=== PATIENT | female | born 1995 | race Caucasian/White ===

== ENCOUNTER 2020-09-04 17:26 | Emergency (ER) | payer OTHER ==
[2020-09-04 17:37] VITALS: TEMP 98.1
[2020-09-04] MEDS ORDERED: SODIUM CHLORIDE 0.9% 500 ML 500 ML IV ONE (18:17)
--- NOTE | 2020-09-04 18:38 | ED ---
General Adult HPI - General Chief complaint: Chest Pain Stated complaint: Chest discomfort,nausea Time Seen by Provider: 09/04/20 17:54 Source: patient, RN notes reviewed, old records reviewed Mode of arrival: ambulatory Limitations: no limitations - History of Present Illness Initial comments: 25-year-old female presenting for evaluation of lightheadedness, chest pain. 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 She has no known aneurysm or dissection. She follows at [facility]. She developed some dizziness, lightheadedness, chest pain. Today. This was a dull chest pain, no sharp pain or radiating chest pain. She denies associated diaphoresis or nausea. Symptoms have resolved currently. - Related Data Home Medications Medication Instructions Recorded Confirmed Dextroamphetamine/Amphetamine 30 mg PO BID 09/04/20 09/04/20 [Adderall] Allergies Allergy/AdvReac Type Severity Reaction Status Date / Time peanut Allergy Anaphylaxis Verified 09/04/20 20:01 Review of Systems ROS Statement: Those systems with pertinent positive or pertinent negative responses have been documented in the HPI. ROS Other: All systems not noted in ROS Statement are negative. 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 migraines History of Any Multi-Drug Resistant Organisms: None Reported Past Surgical History: No Surgical Hx Reported Past Psychological History: Anxiety Smoking Status: Never smoker Past Alcohol Use History: Occasional Past Drug Use History: None Reported General Exam Limitations: no limitations General appearance: alert, in no apparent distress Head exam: Present: atraumatic, normocephalic Eye exam: Present: normal appearance, PERRL ENT exam: Present: normal exam Neck exam: Present: normal inspection. Absent: tenderness, meningismus Respiratory exam: Present: normal lung sounds bilaterally. Absent: respiratory distress, wheezes Cardiovascular Exam: Present: regular rate, normal rhythm, normal heart sounds GI/Abdominal exam: Present: soft. Absent: distended, tenderness, guarding Extremities exam: Present: normal inspection, normal capillary refill. Absent: pedal edema Neurological exam: Present: alert, oriented X3, CN II-XII intact Psychiatric exam: Present: normal affect, normal mood Skin exam: Present: warm, dry, intact. Absent: cyanosis, diaphoretic Course Vital Signs 09/04/20 09/04/20 17:32 18:37 Temperature 98.1 F Pulse Rate 86 77 Respiratory 20 18 Rate Blood Pressure 120/77 136/87 O2 Sat by Pulse 99 96 Oximetry EKG Findings - EKG Comments: EKG Findings:: EKG: Normal sinus rhythm, rate of 90, IL interval 146, QRS duration 92, QTC 464, no ST segment elevation. Medical Decision Making - Medical Decision Making 25 yo presenting with an episode of lightheadedness, and some chest discomfort. Workup is initiated in the emergency department, she's seize EKG which shows sinus rhythm, no definitive ischemic changes, no ST segment elevation. She has chest x-ray which is negative for acute cardio pulmonary disease. CT angiography performed which is negative for coronary embolism, no dissection, normal aorta, does show cardiomegaly and fatty infiltrate of the liver. She has elevated liver enzymes as well. She does admit to daily consumption of beverages containing her fructose corn syrup. She will follow-up with her primary care physician regarding these symptoms. She is well-appearing with stable vitals. She will follow with her private care physician as well as her team at [facility]. - Lab Data Result diagrams: 09/04/20 18:37 09/04/20 18:37 Lab Results 09/04/20 09/04/20 09/04/20 Range/Units 18:37 18:37 18:37 WBC 9.5 (3.8-10.6) k/uL RBC 4.48 (3.80-5.40) m/uL Hgb 14.0 (11.4-16.0) gm/dL Hct 42.7 (34.0-46.0) % MCV 95.3 (80.0-100.0) fL MCH 31.4 (25.0-35.0) pg MCHC 32.9 (31.0-37.0) g/dL RDW 13.7 (11.5-15.5) % Plt Count 352 (150-450) k/uL Neutrophils % 58 % Lymphocytes % 34 % Monocytes % 5 % Eosinophils % 2 % Basophils % 0 % Neutrophils # 5.5 (1.3-7.7) k/uL Lymphocytes # 3.2 (1.0-4.8) k/uL Monocytes # 0.4 (0-1.0) k/uL Eosinophils # 0.2 (0-0.7) k/uL Basophils # 0.0 (0-0.2) k/uL PT 10.1 (9.0-12.0) sec INR 1.0 (<1.2) APTT 28.1 (22.0-30.0) sec Sodium 140 (137-145) mmol/L Potassium 4.5 (3.5-5.1) mmol/L Chloride 107 (98-107) mmol/L Carbon Dioxide 24 (22-30) mmol/L Anion Gap 9 mmol/L BUN 14 (7-17) mg/dL Creatinine 0.66 (0.52-1.04) mg/dL Est GFR (CKD-EPI)AfAm >90 (>60 ml/min/1.73 sqM) Est GFR (CKD-EPI)NonAf >90 (>60 ml/min/1.73 sqM) Glucose 91 (74-99) mg/dL Calcium 9.8 (8.4-10.2) mg/dL Magnesium 1.9 (1.6-2.3) mg/dL Total Bilirubin 1.6 H (0.2-1.3) mg/dL AST 106 H (14-36) U/L ALT 124 H (4-34) U/L Alkaline Phosphatase 64 (38-126) U/L Troponin I (0.000-0.034) ng/mL Total Protein 8.1 (6.3-8.2) g/dL Albumin 4.7 (3.5-5.0) g/dL Urine HCG, Qual (Not Detectd) 09/04/20 09/04/20 Range/Units 18:37 18:37 WBC (3.8-10.6) k/uL RBC (3.80-5.40) m/uL Hgb (11.4-16.0) gm/dL Hct (34.0-46.0) % MCV (80.0-100.0) fL MCH (25.0-35.0) pg MCHC (31.0-37.0) g/dL RDW (11.5-15.5) % Plt Count (150-450) k/uL Neutrophils % % Lymphocytes % % Monocytes % % Eosinophils % % Basophils % % Neutrophils # (1.3-7.7) k/uL Lymphocytes # (1.0-4.8) k/uL Monocytes # (0-1.0) k/uL Eosinophils # (0-0.7) k/uL Basophils # (0-0.2) k/uL PT (9.0-12.0) sec INR (<1.2) APTT (22.0-30.0) sec Sodium (137-145) mmol/L Potassium (3.5-5.1) mmol/L Chloride (98-107) mmol/L Carbon Dioxide (22-30) mmol/L Anion Gap mmol/L BUN (7-17) mg/dL Creatinine (0.52-1.04) mg/dL Est GFR (CKD-EPI)AfAm (>60 ml/min/1.73 sqM) Est GFR (CKD-EPI)NonAf (>60 ml/min/1.73 sqM) Glucose (74-99) mg/dL Calcium (8.4-10.2) mg/dL Magnesium (1.6-2.3) mg/dL Total Bilirubin (0.2-1.3) mg/dL AST (14-36) U/L ALT (4-34) U/L Alkaline Phosphatase (38-126) U/L Troponin I <0.012 (0.000-0.034) ng/mL Total Protein (6.3-8.2) g/dL Albumin (3.5-5.0) g/dL Urine HCG, Qual Not Detected (Not Detectd) Disposition Clinical Impression: Chest pain, Fatty liver Disposition: HOME SELF-CARE Condition: Good Instructions (If sedation given, give patient instructions): Chest Pain (ED), Non-Alcoholic Fatty Liver Disease (ED) Additional Instructions: Please follow up with your healthcare provider at [facility]. These return with worsening or changing symptoms. Is patient prescribed a controlled substance at d/c from ED?: No Referrals: Arsenio Almonte MD [Primary Care Provider] - 1-2 days Time of Disposition: 20:29
--- NOTE | 2020-09-04 18:50 | XR ---
EXAMINATION TYPE: XR chest 1V portable DATE OF EXAM: 09/04/2020 COMPARISON: NONE HISTORY: Chest pain TECHNIQUE: Single view FINDINGS: Heart and mediastinum are normal. Lungs are clear. Diaphragm is normal. Bony thorax appears normal. IMPRESSION: Normal chest.
[2020-09-04 19:02] VITALS: RESP 18
[2020-09-04 19:22] LABS: Basophils % (A) 0 %; Eosinophils # (A) 0.2 k/uL (0-0.7); Eosinophils % (A) 2 %; HCT 42.7 % (34.0-46.0); Lymphocytes # (A) 3.2 k/uL (1.0-4.8); Lymphocytes % (A) 34 %; MCH 31.4 pg (25.0-35.0); MCHC 32.9 g/dL (31.0-37.0); MCV 95.3 fL (80.0-100.0); Mean Platelet Volume 7.1; Monocytes # (A) 0.4 k/uL (0-1.0); Monocytes % (A) 5 %; Neutrophils # (A) 5.5 k/uL (1.3-7.7); Neutrophils % (A) 58 %; Platelet Count 352 k/uL (150-450); RBC 4.48 m/uL (3.80-5.40); RDW 13.7 % (11.5-15.5); WBC 9.5 k/uL (3.8-10.6)
[2020-09-04 19:33] LABS: Partial Thromboplastin Time 28.1 sec (22.0-30.0); Prothrombin Time 10.1 sec (9.0-12.0)
[2020-09-04 19:38] LABS: ALT 124 U/L (4-34); AST 106 U/L (14-36); African American GFR (CKD) >90 (>60 ml/min/1.73 sqM); Albumin 4.7 g/dL (3.5-5.0); Alkaline Phosphatase 64 U/L (38-126); Anion Gap 9 mmol/L; Blood Urea Nitrogen 14 mg/dL (7-17); Calcium 9.8 mg/dL (8.4-10.2); Carbon Dioxide 24 mmol/L (22-30); Chloride 107 mmol/L (98-107); Glucose 91 mg/dL (74-99); Magnesium 1.9 mg/dL (1.6-2.3); Non-African American GFR(CKD) >90 (>60 ml/min/1.73 sqM); Potassium 4.5 mmol/L (3.5-5.1); Sodium 140 mmol/L (137-145); Total Bilirubin 1.6 mg/dL (0.2-1.3); Total Protein 8.1 g/dL (6.3-8.2)
--- NOTE | 2020-09-04 20:13 | CT ---
EXAMINATION TYPE: CT angio chest DATE OF EXAM: 09/04/2020 COMPARISON: None HISTORY: Chest pain CT DLP: 662.1 mGycm Automated exposure control for dose reduction was used. CONTRAST: Performed with IV Contrast, patient injected with 100 mL of Isovue 370. There are 3-D post processed images. Heart is top normal in size. There is no pericardial effusion. There are no hilar masses. There is no mediastinal adenopathy. Thoracic aorta is intact. There is no aneurysm or dissection. There is normal contrast opacification of the pulmonary arteries. There are no filling defects. There is some fatty infiltration of the liver. The lungs are clear of infiltrate. There is no evidence of a pulmonary mass. There is no pleural effusion. Thoracic vertebra have normal spacing and alignment. The bony thorax is intact. Sternum appears chapin l. IMPRESSION: No evidence of pulmonary embolism. Borderline cardiomegaly. Fatty infiltration of the liver.
[2020-09-04 21:28] VITALS: BP 130/76; PULSE 80
== END 2020-09-04 21:00 | disposition home or self-care (01) ==
LOC: EC 17:26
DX: R07.9 Chest pain, unspecified (principal); R42 Dizziness and giddiness; K76.0 Fatty (change of) liver, not elsewhere classified; F41.9 Anxiety disorder, unspecified; Z79.899 Other long term (current) drug therapy; Z91.010 Allergy to peanuts
CPT/HCPCS: 36415; 93005; 80053; 83735; 84484; 85025; 85610; 85730; 81025; 71045; 71275; 99285; 96360; Q9967

== ENCOUNTER 2021-07-18 14:28 | Emergency (ER) | payer OTHER ==
[2021-07-18 14:37] VITALS: TEMP 98.1
[2021-07-18] MEDS ORDERED: LORazepam 2 MG/ML INJ IV STA (14:53)
[2021-07-18] MEDS ORDERED: SODIUM CHLORIDE 0.9% 500 ML 500 ML IV STA (14:53)
--- NOTE | 2021-07-18 14:56 | ED ---
General Adult HPI - General Chief complaint: Chest Pain Stated complaint: chest pain Time Seen by Provider: 07/18/21 14:38 Source: family, RN notes reviewed Mode of arrival: wheelchair Limitations: no limitations - History of Present Illness Initial comments: Patient is a pleasant 26-year-old female presenting to the emergency department with anxiety and chest discomfort. Patient does have history of similar symptoms and goes emergency department several times per year. Patient does have history of genetic mutation interfamily associated with aortic dissection. Patient states discomfort has been mild and feels like tightness. Patient also admits to feeling anxious regarding this. Patient admits to having history of anxiety problems. Patient also questions if she could be dehydrated because it has been warm outside. - Related Data Home Medications Medication Instructions Recorded Confirmed No Known Home Medications 07/18/21 07/18/21 Allergies Allergy/AdvReac Type Severity Reaction Status Date / Time peanut Allergy Anaphylaxis Verified 07/18/21 15:54 Review of Systems ROS Statement: Those systems with pertinent positive or pertinent negative responses have been documented in the HPI. ROS Other: All systems not noted in ROS Statement are negative. 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 migraines History of Any Multi-Drug Resistant Organisms: None Reported Past Surgical History: No Surgical Hx Reported Past Psychological History: Anxiety Smoking Status: Never smoker Past Alcohol Use History: Occasional Past Drug Use History: None Reported General Exam Limitations: no limitations General appearance: alert, in no apparent distress Head exam: Present: normocephalic Eye exam: Present: other (Bilateral abnormal pupil shape which patient states is chronic) Neck exam: Present: normal inspection Respiratory exam: Present: normal lung sounds bilaterally. Absent: chest wall tenderness Cardiovascular Exam: Present: regular rate, normal rhythm Expanded Peripheral pulses: 2+: Radial (R), Radial (L), Dorsalis Pedis (R), Dorsalis Pedis (L) GI/Abdominal exam: Present: soft. Absent: tenderness Extremities exam: Present: normal inspection. Absent: pedal edema, calf tenderness Neurological exam: Present: alert Psychiatric exam: Present: normal affect, normal mood Skin exam: Present: normal color Course Vital Signs 07/18/21 07/18/21 14:34 15:32 Temperature 98.1 F Pulse Rate 67 77 Respiratory 20 18 Rate Blood Pressure 118/75 117/78 O2 Sat by Pulse 97 96 Oximetry EKG Findings - EKG Comments: EKG Findings:: Normal sinus rhythm with a rate of 71. MS 146. QRS 88. QT 408. QTC 443. Normal axis. Normal QRS. No acute ST change. Medical Decision Making - Medical Decision Making Patient evaluated and resting comfortably in bed, symptom-free. Patient states feeling much better. Patient updated on results, specifically on liver enzymes and need for follow-up regarding this. Patient states she has her that before and was making dietary changes however agrees to follow-up with this. Patient is informed she will need further testing. - Lab Data Result diagrams: 07/18/21 15:04 07/18/21 15:04 Lab Results 07/18/21 07/18/21 07/18/21 Range/Units 15:04 15:04 15:04 WBC 11.0 H (3.8-10.6) k/uL RBC 4.51 (3.80-5.40) m/uL Hgb 14.6 (11.4-16.0) gm/dL Hct 43.3 (34.0-46.0) % MCV 96.1 (80.0-100.0) fL MCH 32.5 (25.0-35.0) pg MCHC 33.8 (31.0-37.0) g/dL RDW 14.0 (11.5-15.5) % Plt Count 339 (150-450) k/uL MPV 7.8 Neutrophils % 80 % Lymphocytes % 16 % Monocytes % 2 % Eosinophils % 1 % Basophils % 0 % Neutrophils # 8.7 H (1.3-7.7) k/uL Lymphocytes # 1.7 (1.0-4.8) k/uL Monocytes # 0.3 (0-1.0) k/uL Eosinophils # 0.1 (0-0.7) k/uL Basophils # 0.1 (0-0.2) k/uL PT 11.1 (9.0-12.0) sec INR 1.1 (<1.2) APTT 26.4 (22.0-30.0) sec Sodium 137 (137-145) mmol/L Potassium 4.9 (3.5-5.1) mmol/L Chloride 107 (98-107) mmol/L Carbon Dioxide 21 L (22-30) mmol/L Anion Gap 9 mmol/L BUN 12 (7-17) mg/dL Creatinine 0.55 (0.52-1.04) mg/dL Est GFR (CKD-EPI)AfAm >90 (>60 ml/min/1.73 sqM) Est GFR (CKD-EPI)NonAf >90 (>60 ml/min/1.73 sqM) Glucose 109 H (74-99) mg/dL Calcium 9.8 (8.4-10.2) mg/dL Magnesium 1.9 (1.6-2.3) mg/dL Total Bilirubin 2.6 H (0.2-1.3) mg/dL AST 65 H (14-36) U/L ALT 61 H (4-34) U/L Alkaline Phosphatase 59 (38-126) U/L Troponin I (0.000-0.034) ng/mL Total Protein 8.0 (6.3-8.2) g/dL Albumin 4.8 (3.5-5.0) g/dL 07/18/21 Range/Units 15:04 WBC (3.8-10.6) k/uL RBC (3.80-5.40) m/uL Hgb (11.4-16.0) gm/dL Hct (34.0-46.0) % MCV (80.0-100.0) fL MCH (25.0-35.0) pg MCHC (31.0-37.0) g/dL RDW (11.5-15.5) % Plt Count (150-450) k/uL MPV Neutrophils % % Lymphocytes % % Monocytes % % Eosinophils % % Basophils % % Neutrophils # (1.3-7.7) k/uL Lymphocytes # (1.0-4.8) k/uL Monocytes # (0-1.0) k/uL Eosinophils # (0-0.7) k/uL Basophils # (0-0.2) k/uL PT (9.0-12.0) sec INR (<1.2) APTT (22.0-30.0) sec Sodium (137-145) mmol/L Potassium (3.5-5.1) mmol/L Chloride (98-107) mmol/L Carbon Dioxide (22-30) mmol/L Anion Gap mmol/L BUN (7-17) mg/dL Creatinine (0.52-1.04) mg/dL Est GFR (CKD-EPI)AfAm (>60 ml/min/1.73 sqM) Est GFR (CKD-EPI)NonAf (>60 ml/min/1.73 sqM) Glucose (74-99) mg/dL Calcium (8.4-10.2) mg/dL Magnesium (1.6-2.3) mg/dL Total Bilirubin (0.2-1.3) mg/dL AST (14-36) U/L ALT (4-34) U/L Alkaline Phosphatase (38-126) U/L Troponin I <0.012 (0.000-0.034) ng/mL Total Protein (6.3-8.2) g/dL Albumin (3.5-5.0) g/dL - Radiology Data Radiology results: report reviewed (CT angios chest shows no acute abnormality) Disposition Clinical Impression: Chest pain Disposition: HOME SELF-CARE Condition: Stable Instructions (If sedation given, give patient instructions): Chest Pain (ED) Additional Instructions: Please do follow-up through primary care physician in the being the week. Return for increased pain, difficult to breathing, abdominal pain, change or worsening symptoms or other concerns. You will need further testing and evaluation regarding elevated liver enzymes. Is patient prescribed a controlled substance at d/c from ED?: No Referrals: Arsenio Almonte MD [Primary Care Provider] - 1-2 days Time of Disposition: 16:55
[2021-07-18 15:18] LABS: Basophils # (A) 0.1 k/uL (0-0.2); Basophils % (A) 0 %; Eosinophils # (A) 0.1 k/uL (0-0.7); Eosinophils % (A) 1 %; HCT 43.3 % (34.0-46.0); HGB 14.6 gm/dL (11.4-16.0); Lymphocytes # (A) 1.7 k/uL (1.0-4.8); Lymphocytes % (A) 16 %; MCH 32.5 pg (25.0-35.0); MCHC 33.8 g/dL (31.0-37.0); MCV 96.1 fL (80.0-100.0); Mean Platelet Volume 7.8; Monocytes # (A) 0.3 k/uL (0-1.0); Monocytes % (A) 2 %; Neutrophils # (A) 8.7 k/uL (1.3-7.7); Neutrophils % (A) 80 %; Platelet Count 339 k/uL (150-450); RBC 4.51 m/uL (3.80-5.40)
[2021-07-18 15:33] VITALS: RESP 18
[2021-07-18 15:35] LABS: ALT 61 U/L (4-34); AST 65 U/L (14-36); African American GFR (CKD) >90 (>60 ml/min/1.73 sqM); Albumin 4.8 g/dL (3.5-5.0); Alkaline Phosphatase 59 U/L (38-126); Anion Gap 9 mmol/L; Blood Urea Nitrogen 12 mg/dL (7-17); Calcium 9.8 mg/dL (8.4-10.2); Carbon Dioxide 21 mmol/L (22-30); Chloride 107 mmol/L (98-107); Glucose 109 mg/dL (74-99); Magnesium 1.9 mg/dL (1.6-2.3); Non-African American GFR(CKD) >90 (>60 ml/min/1.73 sqM); Sodium 137 mmol/L (137-145); Total Bilirubin 2.6 mg/dL (0.2-1.3)
[2021-07-18 15:37] LABS: Potassium 4.9 mmol/L (3.5-5.1)
[2021-07-18 15:53] LABS: INR 1.1 (<1.2); Partial Thromboplastin Time 26.4 sec (22.0-30.0); Prothrombin Time 11.1 sec (9.0-12.0)
--- NOTE | 2021-07-18 16:34 | CT ---
EXAMINATION TYPE: CT angio thor/abd pel aorta DATE OF EXAM: 07/18/2021 COMPARISON: Chest CT scan 09/04/2020 HISTORY: Chest pressure. History of PKRG1 gene mutation. CT DLP: 1385.5 mGycm Automated exposure control for dose reduction was used. CONTRAST: Performed without and with IV Contrast, patient injected with 100 mL of Isovue 370. Images obtained from the aortic arch to the floor the pelvis with IV contrast. There are 3-D post pro cessed images. Lungs are clear of infiltrate. Heart and mediastinum appear normal. Thoracic aorta is intact. There i s no aneurysm or dissection. There is no filling defect in the pulmonary arteries. Ascending aorta me asures 3.2 cm. There is no pericardial effusion. There is no pleural effusion. Liver spleen stomach pancreas gallbladder appear intact. There is no adrenal mass. Kidneys show [employer] contrast opacification. There is no hydronephrosis. Ureters are not dilated. Bladder distends smoothly. Uterus is anteverted. There is no inguinal hernia. There is no free fluid in the pelvis. T here is no mesenteric edema. There is no ascites or free air. There is no bowel obstruction. Appendix appears normal. There is arterial flow in the celiac artery and superior mesenteric artery. There is arterial flow in the renal and iliac and femoral arteries. There is no evidence of arterial aneurysm or dissection. T here is no evidence of hemodynamic stenosis. Thoracic spine is intact. Sternum is intact. The ribs ar e intact. Bony pelvis is intact. IMPRESSION: Negative CT angiogram of the chest abdomen pelvis. No evidence of arterial aneurysm or dissection. No evidence of pulmonary embolism. No evidence of renal polycystic disease.
[2021-07-18] MEDS ORDERED: LORazepam 1 MG TAB PO STA (17:22)
[2021-07-18 17:29] VITALS: BP 122/78; PULSE 73
== END 2021-07-18 17:27 | disposition home or self-care (01) ==
LOC: EC 14:28
DX: R07.9 Chest pain, unspecified (principal); F41.9 Anxiety disorder, unspecified; I25.10 Atherosclerotic heart disease of native coronary artery without angina pectoris; Z91.010 Allergy to peanuts
CPT/HCPCS: 99285; 96374; 96361; 36415; 93005; 80053; 83735; 84484; 85025; 85610; 85730; 71275; 74174; J2060; Q9967

== ENCOUNTER 2022-04-14 13:11 | Emergency (ER) | payer OTHER ==
--- NOTE | 2022-04-14 16:57 | XR ---
EXAMINATION TYPE: XR chest 2V DATE OF EXAM: 04/14/2022 4:49 PM COMPARISON: 09/04/2020 TECHNIQUE: XR chest 2V Frontal and lateral views of the chest. CLINICAL INDICATION:Female, 26 years old with history of DIZZINESS, LIGHTHEADED; FINDINGS: Lungs/Pleura: There is no evidence of pleural effusion, focal consolidation, or pneumothorax. Pulmonary vascularity: Unremarkable. Heart/mediastinum: Cardiomediastinal silhouette is unremarkable. Musculoskeletal: No acute osseous pathology. IMPRESSION: No acute cardiopulmonary disease/process.
--- NOTE | 2022-04-14 19:02 | US ---
EXAMINATION TYPE: US venous doppler duplex LE BI DATE OF EXAM: 04/14/2022 6:55 PM COMPARISON: NONE CLINICAL HISTORY: dizziness, r/o DVT. 20 weeks , dizziness, r/o DVT SIDE PERFORMED: Bilateral TECHNIQUE: The lower extremity deep venous system is examined utilizing real time linear array sonog te with graded compression, doppler sonography and color-flow sonography. VESSELS IMAGED: Common Femoral Vein Deep Femoral Vein Greater Saphenous Vein * Femoral Vein Popliteal Vein Small Saphenous Vein * Proximal Calf Veins (* superficial vessels) Grayscale, color doppler, spectral doppler imaging performed of the deep veins of the lower extremiti es. There is normal flow, compressibility, vascular waveforms. Right Leg: Negative for DVT Left Leg: Negative for DVT IMPRESSION: No evidence of DVT of either lower extremity
--- NOTE | 2022-04-14 19:06 | ED ---
General Adult HPI - History of Present Illness Initial comments: Patient is a 26-year-old female presenting with chief complaint of dizziness. Patient is currently 20 weeks . She states that for the last 4 days she has "felt like I'm going to pass out". She feels lightheaded for the majority of the day, with random spells of dizziness. She states that there are some dizziness with head movement. She also states that for the greater part of this she has been nauseous, some vomiting. She denies any chest pain, shortness of breath, fever, chills, abdominal or pelvic pain, vaginal bleeding, dysuria, hematuria, urgency, frequency, lower extremity swelling. - Related Data Home Medications Medication Instructions Recorded Confirmed Acetaminophen Tab [Tylenol Tab] 1,000 mg PO Q6HR PRN 04/14/22 04/14/22 Cholecalciferol [Vitamin D3 (25 50 mcg PO DAILY 04/14/22 04/14/22 Mcg = 1000 Iu)] EPINEPHrine (Auto Inject) [Epipen] 0.3 mg IM ONCE PRN 04/14/22 04/14/22 Cmb-Qbam-Hfygi Acid 1 cap PO DAILY 04/14/22 04/14/22 [-U Capsule (formulary)] Promethazine [Phenergan] 12.5 mg PO Q4HR PRN 04/14/22 04/14/22 Allergies Allergy/AdvReac Type Severity Reaction Status Date / Time peanut Allergy Anaphylaxis Verified 04/14/22 17:45 Review of Systems ROS Statement: Those systems with pertinent positive or pertinent negative responses have been documented in the HPI. ROS Other: All systems not noted in ROS Statement are negative. 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 migraines History of Any Multi-Drug Resistant Organisms: None Reported Past Surgical History: No Surgical Hx Reported Past Psychological History: Anxiety Smoking Status: Never smoker Past Alcohol Use History: Occasional Past Drug Use History: None Reported General Exam Limitations: no limitations General appearance: alert, in no apparent distress Head exam: Present: atraumatic, normocephalic, normal inspection Eye exam: Present: normal appearance, EOMI. Absent: scleral icterus ENT exam: Present: normal exam, mucous membranes moist, TM's normal bilaterally Neck exam: Present: normal inspection Respiratory exam: Present: normal lung sounds bilaterally. Absent: respiratory distress, wheezes, rales, rhonchi, stridor Cardiovascular Exam: Present: regular rate, normal rhythm, normal heart sounds. Absent: systolic murmur, diastolic murmur, rubs, gallop, clicks GI/Abdominal exam: Present: soft. Absent: distended, tenderness, guarding, rebound, rigid Neurological exam: Present: alert, oriented X3, CN II-XII intact Psychiatric exam: Present: normal affect, normal mood Skin exam: Present: warm, dry, intact, normal color. Absent: rash Course Vital Signs 04/14/22 04/14/22 20:30 22:06 Pulse Rate 74 Respiratory 16 Rate Blood Pressure 118/61 Blood Pressure 114/65 [Right Arm] O2 Sat by Pulse 98 98 Oximetry Medical Decision Making - Medical Decision Making Patient is a 26-year-old female, currently 20 weeks , presenting with chief complaint of dizziness. Patient states is "ongoing for the last 4 days, patient states that she feels as though she is going to lose consciousness. Examination is unremarkable, there are no focal neurological deficits, abdomen is soft, nontender, nondistended, heart and lungs are clear to auscultation. Lab work is grossly unremarkable, patient is negative for Covid. Doppler ultrasound of the bilateral lower extremities shows no sign of DVT. Chest x-ray is negative. Patient is given 1 L normal saline fluid bolus, on reassessment patient states that she feels somewhat better but is not 100%. heart tones range from 145-155. Patient appears stable for discharge with outpatient follow-up at this time. I instructed her to follow up with [facility] and PCP. Report back to ER if any worsening symptoms. We discussed return parameters alarm symptoms. Answered all questions. Patient conveyed verbal understanding and agreed to the plan. I discussed this case with my attending Dr. Lopez. - Lab Data Result diagrams: 04/14/22 17:14 04/14/22 17:14 Lab Results 04/14/22 04/14/22 04/14/22 Range/Units 17:14 17:14 17:14 WBC 10.2 (3.8-10.6) k/uL RBC 4.14 (3.80-5.40) m/uL Hgb 13.2 (11.4-16.0) gm/dL Hct 39.5 (34.0-46.0) % MCV 95.5 (80.0-100.0) fL MCH 31.8 (25.0-35.0) pg MCHC 33.3 (31.0-37.0) g/dL RDW 13.6 (11.5-15.5) % Plt Count 376 (150-450) k/uL MPV 7.9 Neutrophils % 71 % Lymphocytes % 23 % Monocytes % 4 % Eosinophils % 1 % Basophils % 0 % Neutrophils # 7.2 (1.3-7.7) k/uL Lymphocytes # 2.3 (1.0-4.8) k/uL Monocytes # 0.4 (0-1.0) k/uL Eosinophils # 0.1 (0-0.7) k/uL Basophils # 0.0 (0-0.2) k/uL Sodium 134 L (137-145) mmol/L Potassium 3.6 (3.5-5.1) mmol/L Chloride 104 (98-107) mmol/L Carbon Dioxide 25 (22-30) mmol/L Anion Gap 5 mmol/L BUN 6 L (7-17) mg/dL Creatinine 0.46 L (0.52-1.04) mg/dL Est GFR (CKD-EPI)AfAm >90 (>60 ml/min/1.73 sqM) Est GFR (CKD-EPI)NonAf >90 (>60 ml/min/1.73 sqM) Glucose 119 H (74-99) mg/dL Calcium 8.8 (8.4-10.2) mg/dL Total Bilirubin 1.1 (0.2-1.3) mg/dL GGT 11 L (12-43) U/L AST 20 (14-36) U/L ALT 12 (4-34) U/L Alkaline Phosphatase 42 (38-126) U/L Creatine Kinase 55 (30-135) U/L CK-MB (CK-2) 0.6 (0.0-2.4) ng/mL Troponin I <0.012 (0.000-0.034) ng/mL Total Protein 6.3 (6.3-8.2) g/dL Albumin 3.4 L (3.5-5.0) g/dL Amylase 45 (30-110) U/L Lipase 32 (23-300) U/L Coronavirus (PCR) (Not Detectd) 04/14/22 Range/Units 17:14 WBC (3.8-10.6) k/uL RBC (3.80-5.40) m/uL Hgb (11.4-16.0) gm/dL Hct (34.0-46.0) % MCV (80.0-100.0) fL MCH (25.0-35.0) pg MCHC (31.0-37.0) g/dL RDW (11.5-15.5) % Plt Count (150-450) k/uL MPV Neutrophils % % Lymphocytes % % Monocytes % % Eosinophils % % Basophils % % Neutrophils # (1.3-7.7) k/uL Lymphocytes # (1.0-4.8) k/uL Monocytes # (0-1.0) k/uL Eosinophils # (0-0.7) k/uL Basophils # (0-0.2) k/uL Sodium (137-145) mmol/L Potassium (3.5-5.1) mmol/L Chloride (98-107) mmol/L Carbon Dioxide (22-30) mmol/L Anion Gap mmol/L BUN (7-17) mg/dL Creatinine (0.52-1.04) mg/dL Est GFR (CKD-EPI)AfAm (>60 ml/min/1.73 sqM) Est GFR (CKD-EPI)NonAf (>60 ml/min/1.73 sqM) Glucose (74-99) mg/dL Calcium (8.4-10.2) mg/dL Total Bilirubin (0.2-1.3) mg/dL GGT (12-43) U/L AST (14-36) U/L ALT (4-34) U/L Alkaline Phosphatase (38-126) U/L Creatine Kinase (30-135) U/L CK-MB (CK-2) (0.0-2.4) ng/mL Troponin I (0.000-0.034) ng/mL Total Protein (6.3-8.2) g/dL Albumin (3.5-5.0) g/dL Amylase (30-110) U/L Lipase (23-300) U/L Coronavirus (PCR) Not Detected (Not Detectd) Disposition Clinical Impression: Dizziness Disposition: HOME SELF-CARE Condition: Good Instructions (If sedation given, give patient instructions): Vertigo (ED), Near Syncope (ED), Dizziness (ED) Additional Instructions: Follow up with [facility] and PCP as instructed. Report back to ER if any worsening symptoms. Is patient prescribed a controlled substance at d/c from ED?: No Referrals: Arsenio Almonte MD [Primary Care Provider] - 1-2 days Time of Disposition: 21:49
[2022-04-14 19:43] LABS: Basophils % (A) 0 %; Eosinophils # (A) 0.1 k/uL (0-0.7); Eosinophils % (A) 1 %; HCT 39.5 % (34.0-46.0); HGB 13.2 gm/dL (11.4-16.0); Lymphocytes # (A) 2.3 k/uL (1.0-4.8); Lymphocytes % (A) 23 %; MCH 31.8 pg (25.0-35.0); MCHC 33.3 g/dL (31.0-37.0); MCV 95.5 fL (80.0-100.0); Mean Platelet Volume 7.9; Monocytes # (A) 0.4 k/uL (0-1.0); Monocytes % (A) 4 %; Neutrophils # (A) 7.2 k/uL (1.3-7.7); Neutrophils % (A) 71 %; Platelet Count 376 k/uL (150-450); RBC 4.14 m/uL (3.80-5.40); RDW 13.6 % (11.5-15.5); WBC 10.2 k/uL (3.8-10.6)
[2022-04-14 20:03] LABS: ALT 12 U/L (4-34); AST 20 U/L (14-36); African American GFR (CKD) >90 (>60 ml/min/1.73 sqM); Albumin 3.4 g/dL (3.5-5.0); Alkaline Phosphatase 42 U/L (38-126); Amylase 45 U/L (30-110); Anion Gap 5 mmol/L; Blood Urea Nitrogen 6 mg/dL (7-17); Calcium 8.8 mg/dL (8.4-10.2); Carbon Dioxide 25 mmol/L (22-30); Chloride 104 mmol/L (98-107); Creatine Kinase 55 U/L (30-135); GGT 11 U/L (12-43); Glucose 119 mg/dL (74-99); Lipase 32 U/L (23-300); Non-African American GFR(CKD) >90 (>60 ml/min/1.73 sqM); Potassium 3.6 mmol/L (3.5-5.1); Sodium 134 mmol/L (137-145); Total Bilirubin 1.1 mg/dL (0.2-1.3); Total Protein 6.3 g/dL (6.3-8.2)
[2022-04-14 20:42] LABS: Creatine Kinase MB 0.6 ng/mL (0.0-2.4); Troponin I <0.012 ng/mL (0.000-0.034)
[2022-04-14 22:00] VITALS: RESP 16
[2022-04-14 22:08] VITALS: BP 118/61; PULSE 74
== END 2022-04-14 22:07 | disposition home or self-care (01) ==
LOC: EC 13:11
DX: O26.892 Other specified pregnancy related conditions, second trimester (principal); R42 Dizziness and giddiness; Z3A.20 20 weeks gestation of pregnancy
CPT/HCPCS: 36415; 71046; 80053; 82150; 82550; 82553; 82977; 83690; 84484; 85025; 87635; 93970; 99284